=== PATIENT | male | born 1955 | race Asian ===

== ENCOUNTER 2016-05-13 16:28 | Emergency (ER) | payer BC ==
[~2016-05-13] VITALS: Ht 182.9 cm; Wt 145.5 kg
[2016-05-13] MEDS ORDERED: CARVEDILOL6.25 MG PO (17:07)
[2016-05-13] MEDS ORDERED: ALDACTONE 25MG25 MG PO (17:07)
[2016-05-13] MEDS ORDERED: LISINOPRIL20 MG PO (17:07)
[2016-05-13] MEDS ORDERED: CLOPIDOGREL75 M1 PO (17:08)
[2016-05-13] MEDS ORDERED: GLYBURIDE AND M PO (17:08)
[2016-05-13] MEDS ORDERED: DOXAZOSIN2 MG PO (17:08)
[2016-05-13] MEDS ORDERED: NIFEDIPINE ER60 M3 PO (17:09)
[2016-05-13] MEDS ORDERED: POTASSIUM CHLO10 ME8 PO (17:09)
[2016-05-13] MEDS ORDERED: SIMVASTATIN20 M1 PO (17:09)
[2016-05-13] MEDS ORDERED: TORSEMIDE20 M1 PO (17:09)
[2016-05-13] MEDS ORDERED: NORCO 325 MG-51 TA1 PO (18:09)
[2016-05-13] MEDS ORDERED: CYCLOBENZ5 MG PO (18:09)
[2016-05-13 18:56] VITALS: BP 176/94
== END 2016-05-13 18:25 | disposition home or self-care (01) ==
LOC: ED 16:28
DX: S01.01XA Laceration without foreign body of scalp, initial encounter (principal); W22.8XXA Striking against or struck by other objects, initial encounter; M62.838 Other muscle spasm; M79.81 Nontraumatic hematoma of soft tissue; F07.81 Postconcussional syndrome
CPT/HCPCS: 90715; A4550